=== PATIENT | female | born 1980 | race African-American/Black ===

== ENCOUNTER 2021-12-13 15:04 | Emergency (ER) | payer OTHER ==
[2021-12-13 15:21] VITALS: BP 101/52; PULSE 63; TEMP 98.9; BMI 26.5
[2021-12-13] MEDS ORDERED: NAPROXEN 500 MG TABLET PO ONE (15:33)
[2021-12-13] MEDS ORDERED: LIDOCAINE 5% TOPICAL PATCH TP ONE (15:33)
[2021-12-13] MEDS ORDERED: NAPROXEN 500 MG TABLET ONE (15:35)
[2021-12-13] MEDS ORDERED: LIDOCAINE 5% TOPICAL PATCH ONE (15:35)
[2021-12-13] MEDS ORDERED: LIDOCAINE PATCH REMOVAL MC SCH (22:00)
== END 2021-12-13 15:50 | disposition home or self-care (01) ==
LOC: FER 15:04
DX: M54.31 Sciatica, right side (principal)
CPT/HCPCS: 99283-25